=== PATIENT | female | born 1975 ===

== ENCOUNTER → 2017-06-28 | Outpatient (CLI) | payer BC ==
--- NOTE | 2017-06-29 14:56 | MAMMOGRAPHY REPORT ---
BILATERAL DIGITAL SCREENING MAMMOGRAM TOMOSYNTHESIS WITH CAD: 06/28/2017 CLINICAL HISTORY: Routine screening. Patient has no complaints. TECHNIQUE: Breast tomosynthesis in addition to standard 2D mammography was performed. Current study was also evaluated with a Computer Aided Detection (CAD) system. COMPARISON: None BREAST COMPOSITION: The tissue of both breasts is heterogeneously dense, which may obscure small mas ses. FINDINGS: There is an asymmetry in the middle one third of the right breast along the posterior nipp le line on the CC view, thought to project superiorly based on the MLO view, for which additional spo t compression tomosynthesis views and possible ultrasound are recommended. A possible grouping of ca lcifications in the 6:00 anterior left breast warrant additional spot magnification views. No other suspicious masses, asymmetries, areas of architectural distortion or suspicious calcificatio ns are seen bilaterally. IMPRESSION: ACR BI-RADS CATEGORY 0: INCOMPLETE EVALUATION: NEED ADDITIONAL IMAGING EVALUATION The asymmetry in the middle one third of the right breast along the posterior nipple line on the CC v iew and microcalcifications in the 6:00 anterior left breast need additional imaging evaluation. The patient will be called to schedule an appointment. Approximately 10% of breast cancers are not detected with mammography. A negative mammographic report should not delay biopsy if a clinically suggestive mass is present. Michelle Jones M.D. ay/:06/28/2017 15:55:39 Time Piece Repairer: Olga JUSTIN)(Sharon), [facility] letter sent: Addl Imaging 0 BI-RADS Code: ACR BI-RADS Category 0: Incomplete Evaluation: Need Additional Imaging Evaluation
== END | disposition home or self-care (01) ==
LOC: C.MAMM 15:14
PROVIDERS: ATTEND Obstetrics & Gynecology
DX: Z12.31 Encounter for screening mammogram for malignant neoplasm of breast (principal)

== ENCOUNTER → 2017-07-11 | Outpatient (CLI) | payer BC ==
--- NOTE | 2017-07-12 07:53 | MAMMOGRAPHY REPORT ---
BILATERAL DIGITAL DIAGNOSTIC MAMMOGRAM TOMOSYNTHESIS AND TARGETED RIGHT ULTRASOUND: 07/11/2017 CLINICAL HISTORY: 41-year-old woman called back from screening mammography for right breast asymmetry and left breast grouped microcalcifications. Prior mammograms performed in 2004 and no longer avail able therefore most recent screening mammogram is considered new baseline. Family history of breast cancer = mother at age 55. TECHNIQUE: Spot magnification left CC, ML and spot compression CC and MLO 2-D and tomosynthesis views of the right breast were obtained. COMPARISON: Comparison is made to exams dated: 06/28/2017 mammogram - [facility], mammogram, and 03/16/2005 mammogram. BREAST COMPOSITION: The tissue of both breasts is heterogeneously dense, which may obscure small mas ses. FINDINGS: The spot magnification views of the left breast demonstrate a grouping of 6 round microcalc ifications in the 6:00 anterior aspect of the breast. Other scattered and loosely grouped round and coarse calcifications are seen in the visualized left breast. These calcifications are probably arya gn but given that no prior mammograms are available to document stability, a short interval follow-up left diagnostic mammogram including spot magnification views is recommended in 6 months. The spot compression views of the right breast demonstrate partial effacement of the asymmetry in the middle one third of the breast along the posterior nipple line on the CC view. There is no definite associated architectural distortion or calcification. No corresponding abnormality is identified on the spot compression MLO view. Based on the tomosynthesis localizer bar, the asymmetry is located i n the inferior breast and further evaluation with ultrasound was performed. Real-time high-resolution sonographic evaluation was performed in the inferior right breast 5:00, 6:0 0 and 7:00 axes, and also in the retroareolar and 12:00 axes of the right breast. There is a benign anechoic simple cyst in the 7:00 right breast, 5 cm from the nipple, measuring 4.2 x 2.5 x 6.0 mm, th at is incidentally identified. No other suspicious solid or cystic mass is seen. The mammographic a symmetry most likely represents the patient's baseline glandular pattern but a short interval follow- up right diagnostic tomosynthesis mammogram and possible ultrasound is recommended to ensure stabilit y in 6 months. IMPRESSION: ACR-BI-RADS CATEGORY 3: PROBABLY BENIGN, TARGETED ULTRASOUND ACR-BI-RADS CATEGORY 3: PRO BABLY BENIGN 1. The right breast asymmetry in the middle one third of the breast along the posterior nipple line on the cc view has no suspicious sonographic correlate. There is no associated architectural distort ion or calcification. This most likely represent the patient's baseline parenchymal pattern. Mark davis, given that no prior mammograms are available to document stability, a short interval follow-up rig ht diagnostic tomosynthesis mammogram and possible ultrasound is recommended in 6 months. 2. There is a small grouping of approximately 6 round monomorphic microcalcifications in the 6:00 an terior left breast that most likely represent benign fibrocystic change and a few other scattered and loosely grouped similar appearing microcalcifications are also seen in the left breast. However, gi babatunde that no prior mammograms are available to document stability, a short interval follow-up left jamie gnostic tomosynthesis mammogram including spot magnification views is recommended in 6 months. These results and recommendations were discussed with the patient at the time of the exam. She tenta tively scheduled a six-month follow-up appointment prior to leaving our department. Approximately 10% of breast cancers are not detected with mammography. A negative mammographic report should not delay biopsy if a clinically suggestive mass is present. Michelle Jones M.D. ay/:07/11/2017 15:09:56 State Appellate Clerk: Adriane JUSTIN)(Sharon), [facility] letter sent: Follow Up Recommended 3 BI-RADS Code: ACR-BI-RADS Category 3: Probably Benign Ultrasound BI-RADS: ACR-BI-RADS Category 3: Pr obably Benign
== END | disposition home or self-care (01) ==
LOC: C.MAMM 13:40
PROVIDERS: ATTEND Obstetrics & Gynecology
DX: N64.89 Other specified disorders of breast (principal); R92.0 Mammographic microcalcification found on diagnostic imaging of breast

== ENCOUNTER → 2017-07-11 | Outpatient (CLI) | payer BC | END | disposition home or self-care (01) | LOC: C.PAPS 10:28 | PROVIDERS: ATTEND Obstetrics & Gynecology | DX: Z01.419 Encounter for gynecological examination (general) (routine) without abnormal findings (principal) ==

== ENCOUNTER → 2017-07-11 | Outpatient (CLI) | payer BC ==
[2017-07-11 16:34] LABS: HEMATOCRIT 36.8 % (37-47); HEMOGLOBIN 12.4 g/dL (12.0-16.0); MEAN CELL VOLUME 87.8 fL (80-100); MEAN CORPUSCULAR HEMOGLOBIN 29.6 pg (25-34); MEAN CORPUSCULAR HGB CONC 33.7 g/dl (32-36); MEAN PLATELET VOLUME 9.9 fL (7.4-10.4); PLATELET COUNT 232 K/uL (130-400); RED CELL DISTRIBUTION WIDTH CV 13.2 % (11.5-14.5); RED CELL DISTRIBUTION WIDTH SD 42.7 fL (36.4-46.3); WHITE BLOOD COUNT 7.18 K/uL (4.8-10.8)
== END | disposition home or self-care (01) ==
LOC: C.LAB1850 15:44
PROVIDERS: ATTEND Obstetrics & Gynecology
DX: N93.9 Abnormal uterine and vaginal bleeding, unspecified (principal)